=== PATIENT | male | born 1955 | race Two or more races ===

== ENCOUNTER → 2018-04-28 | Outpatient (CLI) | payer BC | END | disposition home or self-care (01) | LOC: HKI 15:44 | DX: M25.512 Pain in left shoulder (principal); M75.112 Incomplete rotator cuff tear or rupture of left shoulder, not specified as traumatic | CPT/HCPCS: Z7500 ==

== ENCOUNTER → 2018-05-22 | Outpatient (CLI) | payer BC | END | disposition home or self-care (01) | LOC: HKI 13:45 | DX: M75.102 Unspecified rotator cuff tear or rupture of left shoulder, not specified as traumatic (principal) | CPT/HCPCS: 20610 ==

== ENCOUNTER 2018-08-27 13:31 | Emergency (ER) | payer BC ==
[2018-08-27] MEDS: ACETAMINOPHEN 325 MG TAB PO (14:44)
== END 2018-08-27 15:33 | disposition home or self-care (01) ==
LOC: E/R 13:31 → FTE 15:33
DX: J06.9 Acute upper respiratory infection, unspecified (principal); I25.10 Atherosclerotic heart disease of native coronary artery without angina pectoris
CPT/HCPCS: 99282; Z7502